=== PATIENT | male | born 1945 | race Caucasian/White ===

== ENCOUNTER 2021-03-22 17:40 | Emergency (ER) | payer OTHER, MEDICARE ==
[2021-03-22 20:39] LABS: Absolute Lymphocytes (CBC) 3.4 K/uL (0.7-4.9); Basophils % 1.1 % (0-1.3); Hematocrit 44.7 % (39.6-49.0); Lymphocytes % 24.8 % (15.3-44.8); RBC Red Blood Cell Count 5.08 M/uL (4.33-5.43)
[2021-03-22 20:43] LABS: Protime INR 1.06
--- NOTE | 2021-03-22 20:55 | RAD REPORT ---
EXAM DESCRIPTION: Calli Single View03/22/2021 8:47 pm CLINICAL HISTORY: Congestion COMPARISON: none FINDINGS: The lungs appear clear of acute infiltrate. The heart is mildly enlarged IMPRESSION: No acute abnormalities displayed
[2021-03-22 20:56] LABS: ALT/SGPT 43 U/L (12-78); AST/SGOT 17 U/L (15-37); Albumin 3.7 g/dL (3.4-5.0); Alkaline Phosphatase 79 U/L (45-117); BUN Blood Urea Nitrogen 19 mg/dL (7-18); Bicarbonate 23 mmol/L (21-32); Bilirubin Direct 0.2 mg/dL (0-0.2); Bilirubin Total 0.6 mg/dL (0.2-1.0); Glucose Level 92 mg/dL (74-106); Magnesium 2.5 mg/dL (1.8-2.4); NT PRO-BNP 262 pg/mL (<125); Potassium 3.8 mmol/L (3.5-5.1); Protein, Total 8.3 g/dL (6.4-8.2); Sodium Level 139 mmol/L (136-145); Troponin (Emerg Dept Use Only) < 0.02 ng/mL (0.0-0.045)
--- NOTE | 2021-03-22 21:06 | RAD REPORT ---
EXAM DESCRIPTION: CT - Head Brain Wo Cont - 03/22/2021 8:36 pm CLINICAL HISTORY: Visual disturbance COMPARISON: None TECHNIQUE: Computed axial tomography of the head was obtained. IV contrast was not requested. All CT scans are performed using dose optimization technique as appropriate and may include automated exposure control or mA/KV adjustment according to patient size. FINDINGS: An intracranial bleed is not seen . Mild dilatation of fourth, third and lateral ventricles. 18 millimeter soft tissue structure left lat eral ventricle No extra-axial fluid collection is noted. Mild to moderate low-density areas within periventricular, deep and subcortical white matter likely r epresent ischemic changes secondary to small vessel disease. Fluid within the sinuses/ mastoids is not seen. IMPRESSION: 18 millimeter soft tissue structure appears to be present within the left lateral ventri vasquez. 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 CT scan with IV contrast is recommended Mild hydrocephalus
--- NOTE | 2021-03-22 23:49 | EDPHYS ---
Physician Documentation [facility] Name: Yfn Barnett Age: 75 yrs Sex: Male : 1945 Arrival Date: 03/22/2021 Time: 17:41 Bed 15 Private MD: ED Physician Pipo Alford HPI: 03/22 20:07 This 75 yrs old Male presents to ER via Ambulatory with complaints of Vision mh7 Problem - doubled. 20:08 The patient is experiencing double vision, The patient sustained None. to both eyes, mh7 caused by an unknown mechanism. Onset: The symptoms/episode began/occurred 2 day(s) ago. Duration: the symptoms are continuous. Aggravated by nothing. Alleviated by nothing. Associated signs and symptoms: Pertinent positives: chills, headache, intermittent for a week, Pertinent negatives: dizziness, ear ache, runny nose. Patient does not utilize any form of vision correction. Severity of symptoms: At their worst the symptoms were mild yesterday, in the emergency department the symptoms have improved moderately. The patient has been recently seen by a physician: the patient's primary care provider, earlier today, Saw eye doctor and had normal eye exam today. Historical: - Allergies: 17:55 No Known Allergies; ll1 - PMHx: 17:55 Hypertension; Gout; ll1 - PSHx: 17:55 None; ll1 - Immunization history:: Flu vaccine is up to date. - Social history:: Smoking status: Patient denies any tobacco usage or history of. ROS: 20:08 ENT: Negative for injury, pain, and discharge, Neck: Negative for injury, pain, and mh7 swelling, Cardiovascular: Negative for chest pain, palpitations, and edema, Respiratory: Negative for shortness of breath, cough, wheezing, and pleuritic chest pain, Abdomen/GI: Negative for abdominal pain, nausea, vomiting, diarrhea, and constipation, Back: Negative for injury and pain, : Negative for injury, bleeding, discharge, and swelling, MS/Extremity: Negative for injury and deformity, Skin: Negative for injury, rash, and discoloration, Psych: Negative for depression, anxiety, suicide ideation, homicidal ideation, and hallucinations, Allergy/Immunology: Negative for hives, rash, and allergies, Endocrine: Negative for neck swelling, polydipsia, polyuria, polyphagia, and marked weight changes, Hematologic/Lymphatic: Negative for swollen nodes, abnormal bleeding, and unusual bruising. Exam: 20:08 Constitutional: This is a well developed, well nourished patient who is awake, alert, mh7 and in no acute distress. Head/Face: Normocephalic, atraumatic. ENT: Nares patent. No nasal discharge, no septal abnormalities noted. Tympanic membranes are normal and external auditory canals are clear. Oropharynx with no redness, swelling, or masses, exudates, or evidence of obstruction, uvula midline. Mucous membranes moist. Neck: Trachea midline, no thyromegaly or masses palpated, and no cervical lymphadenopathy. Supple, full range of motion without nuchal rigidity, or vertebral point tenderness. No Meningismus. Chest/axilla: Normal chest wall appearance and motion. Nontender with no deformity. No lesions are appreciated. Cardiovascular: Regular rate and rhythm with a normal S1 and S2. No gallops, murmurs, or rubs. Normal PMI, no JVD. No pulse deficits. Respiratory: Lungs have equal breath sounds bilaterally, clear to auscultation and percussion. No rales, rhonchi or wheezes noted. No increased work of breathing, no retractions or nasal flaring. Abdomen/GI: Soft, non-tender, with normal bowel sounds. No distension or tympany. No guarding or rebound. No evidence of tenderness throughout. Back: No spinal tenderness. No costovertebral tenderness. Full range of motion. Skin: Warm, dry with normal turgor. Normal color with no rashes, no lesions, and no evidence of cellulitis. MS/ Extremity: Pulses equal, no cyanosis. Neurovascular intact. Full, normal range of motion. Neuro: Awake and alert, GCS 15, oriented to person, place, time, and situation. Cranial nerves II-XII grossly intact. Motor strength 5/5 in all extremities. Sensory grossly intact. Cerebellar exam normal. Normal gait. Psych: Awake, alert, with orientation to person, place and time. Behavior, mood, and affect are within normal limits. 20:08 Eyes: Periorbital structures: appear normal, Pupils: equal, round, and reactive to mh7 light and accomodation, Extraocular movements: intact throughout, Conjunctiva: normal, Corneas: are normal, Sclera: no appreciated abnormality, Lids and lashes: appear normal, funduscopic exam reveals no obvious abnormalities, Visual daniels: are intact, Nystagmus: is not appreciated. Vital Signs: 17:52 BP 200 / 74; Pulse 77; Resp 17; Temp 98.9; Pulse Ox 96% ; Weight 102.51 kg; Height 5 ll1 ft. 9 in. (175.26 cm); Pain 2/10; 17:56 BP 185 / 70; ll1 20:30 BP 173 / 72; Pulse 75; Resp 16 S; Pulse Ox 99% on R/A; Pain 0/10; ad5 21:27 BP 144 / 87; Pulse 86; Resp 18; Pulse Ox 98% ; ea 22:00 BP 161 / 69; Pulse 80; Resp 18; Pulse Ox 99% ; ea 23:54 BP 166 / 71; Pulse 78; Resp 18; Temp 98.7; Pulse Ox 99% ; ea 17:52 Body Mass Index 33.37 (102.51 kg, 175.26 cm) ll1 MDM: 20:08 Differential diagnosis: Ultraviolet keratitis in both eyes. Migraine, intracranial mh7 mass. Data reviewed: vital signs, nurses notes, lab test result(s), cardiac enzymes, CBC, electrolytes, EKG, radiologic studies, CT scan. Data interpreted: Pulse oximetry: on room air is 99 %. Interpretation: normal. Counseling: I had a detailed discussion with the patient and/or guardian regarding: the historical points, exam findings, and any diagnostic results supporting the discharge/admit diagnosis, the presence of at least one elevated blood pressure reading (>120/80) during this emergency department visit, lab results, radiology results, the need for outpatient follow up, an opthalmologist, a neurologist, to return to the emergency department if symptoms worsen or persist or if there are any questions or concerns that arise at home. Response to treatment: the patient's symptoms have markedly improved after treatment. Physician consultation: Dae Caldwell MD was contacted at 21:10, regarding patient's condition, recommended contrast CT Head. 23:48 Patient medically screened. [facility] 03/22 19:58 Order name: Basic Metabolic Panel; Complete Time: 21:24 [facility] 03/22 19:58 Order name: CBC with Diff; Complete Time: 20:49 [facility] 03/22 19:58 Order name: LFT's; Complete Time: 21:24 03/22 19:58 Order name: Magnesium; Complete Time: 21:24 03/22 19:58 Order name: NT PRO-BNP; Complete Time: 21:24 03/22 19:58 Order name: PT-INR; Complete Time: 20:49 03/22 19:58 Order name: Troponin (emerg Dept Use Only); Complete Time: 21:24 03/22 19:58 Order name: XRAY Chest (1 view); Complete Time: 21:24 03/22 19:58 Order name: EKG; Complete Time: 19:59 03/22 19:58 Order name: Cardiac monitoring; Complete Time: 20:40 03/22 19:58 Order name: EKG - Nurse/Tech; Complete Time: 20:53 03/22 19:59 Order name: CT Head Brain wo Cont; Complete Time: 21:24 03/22 21:34 Order name: CT Head Brain w Cont [facility] 03/22 19:58 Order name: IV Saline Lock; Complete Time: 20:36 03/22 19:58 Order name: Labs collected and sent; Complete Time: 20:36 03/22 19:58 Order name: O2 Per Protocol; Complete Time: 20:53 03/22 19:58 Order name: O2 Sat Monitoring; Complete Time: 20:36 03/22 23:41 Order name: Visual Acuity [facility] Administered Medications: 22:59 Drug: NS 0.9% 1000 ml Route: IV; Rate: 1000 ml; Site: right antecubital; ea 23:33 Follow up: Response: No adverse reaction; IV Status: Completed infusion; IV Intake: ea 1000ml Disposition: 03/22/21 23:48 Discharged to Home. Impression: Headache, Diplopia. - Condition is Stable. - Discharge Instructions: Diplopia, General Headache Without Cause. - Medication Reconciliation Form, Thank You Letter, Antibiotic Education, Prescription Opioid Use form. - Follow up: Private Physician; When: 1 - 2 days; Reason: Worsening of condition, Recheck today's complaints, Continuance of care, Re-evaluation by your physician. Follow up: Dae Caldwell MD; When: 1 - 2 days; Reason: Worsening of condition, Recheck today's complaints, Continuance of care, Re-evaluation by your physician. Follow up: Fay Roberts MD; When: 1 - 2 days; Reason: Worsening of condition, Recheck today's complaints. - Problem is an ongoing problem. - Symptoms have improved. Signatures: Dispatcher [employer] EDMS Randee Walters RN RN ea Lewis, Lynsay, RN RN ll1 Pipo Alford MD MD mh7 Corrections: (The following items were deleted from the chart) 03/23 00:01 03/22 23:48 03/22/2021 23:48 Discharged to Home. Impression: Headache; Diplopia. ea Condition is Stable. Forms are Medication Reconciliation Form, Thank You Letter, Antibiotic Education, Prescription Opioid Use. Follow up: Private Physician; When: 1 - 2 days; Reason: Worsening of condition, Recheck today's complaints, Continuance of care, Re-evaluation by your physician. Follow up: Dae Caldwell; When: 1 - 2 days; Reason: Worsening of condition, Recheck today's complaints, Continuance of care, Re-evaluation by your physician. Follow up: Fay Roberts; When: 1 - 2 days; Reason: Worsening of condition, Recheck today's complaints. Problem is an ongoing problem. Symptoms have improved. mh7
--- NOTE | 2021-03-22 23:49 | ER ---
Nurse's Notes [facility] Name: Yfn Barnett Age: 75 yrs Sex: Male : 1945 Arrival Date: 03/22/2021 Time: 17:41 Bed 15 Private MD: Diagnosis: Headache;Diplopia Presentation: 03/22 17:52 Chief complaint: Patient states: Vision doubled since Thursday evening. States he had ll1 BASHIR and sinus pressure earlier in the week. + low grade fever for 2 days. Sent by [facility] for eval. Coronavirus screen: Client denies travel out of the [place] in the last 14 days. At this time, the client does not indicate any symptoms associated with coronavirus-19. Ebola Screen: Patient denies travel to an Ebola-affected area in the 21 days before illness onset. Initial Sepsis Screen: Does the patient meet any 2 criteria? No. Patient's initial sepsis screen is negative. Does the patient have a suspected source of infection? No. Patient's initial sepsis screen is negative. Risk Assessment: Do you want to hurt yourself or someone else? Patient reports no desire to harm self or others. Onset of symptoms was March 20, 2021. 17:52 Method Of Arrival: Ambulatory ll1 17:52 Acuity: AZAEL 2 ll1 Historical: - Allergies: 17:55 No Known Allergies; ll1 - PMHx: 17:55 Hypertension; Gout; ll1 - PSHx: 17:55 None; ll1 - Immunization history:: Flu vaccine is up to date. - Social history:: Smoking status: Patient denies any tobacco usage or history of. Screenin:04 Abuse screen: Denies threats or abuse. Nutritional screening: No deficits noted. ea Tuberculosis screening: No symptoms or risk factors identified. Fall Risk IV access (20 points). Assessment: 20:37 General: Appears in no apparent distress. comfortable, Behavior is calm, cooperative, ad5 appropriate for age. Pain: Denies pain. Neuro: Level of Consciousness is awake, alert, obeys commands, Oriented to person, place, time, situation, Appropriate for age Endoscopy Tech are equal bilaterally Moves all extremities. Gait is steady, Speech is normal, Facial symmetry appears normal, Pupils are PERRLA, Intact Reports blurred vision since x 3 days. Cardiovascular: No deficits noted. Denies chest pain, lightheadedness, palpitations, shortness of breath, syncope, Heart tones present Capillary refill < 3 seconds Clubbing of nail beds is absent JVD is absent Patient's skin is warm and dry. Pulses are all present. Rhythm is regular. Respiratory: No deficits noted. Airway is patent Trachea midline Respiratory effort is even, unlabored, Respiratory pattern is regular, symmetrical, Breath sounds are clear bilaterally. GI: No deficits noted. : No deficits noted. EENT: No deficits noted. Reports blurred vision. Derm: No deficits noted. Skin is pink, warm \T\ dry. Musculoskeletal: No deficits noted. 21:04 Reassessment: Patient and/or family updated on plan of care and expected duration. Pain ea level reassessed. Patient is alert, oriented x 3, equal unlabored respirations, skin warm/dry/pink. 22:00 Reassessment: Patient and/or family updated on plan of care and expected duration. Pain ea level reassessed. Patient is alert, oriented x 3, equal unlabored respirations, skin warm/dry/pink. 23:59 Reassessment: Patient and/or family updated on plan of care and expected duration. Pain ea level reassessed. Patient is alert, oriented x 3, equal unlabored respirations, skin warm/dry/pink. Discharge instruction given to patient verbalized the understanding of instruction. Pt left ED ambulatory tolerating well. Vital Signs: 17:52 BP 200 / 74; Pulse 77; Resp 17; Temp 98.9; Pulse Ox 96% ; Weight 102.51 kg; Height 5 ll1 ft. 9 in. (175.26 cm); Pain 2/10; 17:56 BP 185 / 70; ll1 20:30 BP 173 / 72; Pulse 75; Resp 16 S; Pulse Ox 99% on R/A; Pain 0/10; ad5 21:27 BP 144 / 87; Pulse 86; Resp 18; Pulse Ox 98% ; ea 22:00 BP 161 / 69; Pulse 80; Resp 18; Pulse Ox 99% ; ea 23:54 BP 166 / 71; Pulse 78; Resp 18; Temp 98.7; Pulse Ox 99% ; ea 17:52 Body Mass Index 33.37 (102.51 kg, 175.26 cm) ll1 ED Course: 17:41 Patient arrived in ED. as 17:55 Triage completed. ll1 17:55 Arm band placed on. ll1 19:31 Randee Walters, RN is Primary Nurse. ea 19:38 Pipo Alford MD is Attending Physician. mh7 20:36 CT Head Brain wo Cont In Process Unspecified. EDMS 20:36 CT Head Brain wo Cont Sent. ad5 20:39 Patient has correct armband on for positive identification. Placed in gown. Bed in low ad5 position. Call light in reach. Side rails up X2. playground monitor on. Pulse ox on. NIBP on. Door closed. Noise minimized. Warm blanket given. 20:39 No provider procedures requiring assistance completed. Initial lab(s) drawn, by ia, ad5 sent to lab. Inserted saline lock: 20 gauge in right upper arm, using aseptic technique. Blood collected. 20:47 XRAY Chest (1 view) In Process Unspecified. EDMS 22:33 CT Head Brain w Cont In Process Unspecified. EDMS 23:48 Dae Caldwell MD is Referral Physician. [facility] 23:48 Fay Roberts MD is Referral Physician. [facility] 03/23 00:00 IV discontinued, intact, bleeding controlled, No redness/swelling at site. Pressure ea dressing applied. Administered Medications: 03/22 22:59 Drug: NS 0.9% 1000 ml Route: IV; Rate: 1000 ml; Site: right antecubital; ea 23:33 Follow up: Response: No adverse reaction; IV Status: Completed infusion; IV Intake: ea 1000ml Intake: 23:33 IV: 1000ml; Total: 1000ml. ea Outcome: 23:48 Discharge ordered by . [facility] 23:59 Discharged to home ambulatory, with family. ea 23:59 Condition: stable 23:59 Discharge instructions given to patient, Instructed on discharge instructions, follow up and referral plans. Demonstrated understanding of instructions, follow-up care. 03/23 00:01 Patient left the ED. ea Signatures: Dispatcher [employer] EDDC yAsha Desai Elena, RN RN Marisol Harmon RN RN 1 Pipo Alford MD MD [facility] Anand Kamara ad5
[2021-03-23 00:14] VITALS: O2SAT 99
[2021-03-23 00:15] VITALS: BP 166/71; TEMP 98.7
--- NOTE | 2021-03-23 07:47 | EKG ---
Test Date: 2021-03-22 Test Time: 20:50:17 Ramp Supervisor: PHANI MEASUREMENT RESULTS: Intervals: Rate: 73 NH: 160 QRSD: 96 QT: 390 QTc: 429 [place]: P: 35 NH: 160 QRS: 26 T: 46 INTERPRETIVE STATEMENTS: Normal sinus rhythm Normal ECG No previous ECG available for comparison Electronically Signed On 03-23-21 07:46:09 CDT by Sergey Zafar
--- NOTE | 2021-03-23 20:33 | RAD REPORT ---
EXAM DESCRIPTION: CT - Head Brain W Cont - 03/23/2021 6:33 am CLINICAL HISTORY: 75 years Male Headache; visual disturbances COMPARISON: CT head without contrast of the same day TECHNIQUE: Contiguous axial images of the brain were obtained with the administration of intravenous contrast.This exam was performed according to our departmental dose-optimization program which inclu justin use of Automated Exposure Control, adjustment of the mA and/or kV according to patient size and/o r use of iterative reconstruction technique. DLP: 843 mGy*cm FINDINGS: Brain: No acute intracranial hemorrhage. No extra-axial collection. No mass effect or hilario iation. No abnormal intracranial enhancement. Mild prominence of the sulci and cisterns. Confluent periventricular and subcortical white matter hypodensity is noted. Ventricles: Prominence of ventricular system without hydrocephalus. Globes and orbits: No acute abnormality. Bones: No acute osseous finding Paranasal sinuses: Paranasal sinuses are clear. Mastoid air cells: Well pneumatized. Soft tissues: Within normal limits IMPRESSION: No acute intracranial abnormality or abnormal intracranial enhancement. Cerebral volume loss and chronic vessel ischemic changes. Consider follow-up MRI brain with and witho ut contrast. Electronically signed by: Rickey Avalos DO 03/22/2021 11:05 PM CDT Due to temporary technical issues with the PACS/Fluency reporting system, reports are being signed by the in house radiologists without review as a courtesy to insure prompt reporting. The interpreting radiologist is fully responsible for the content of the report.
== END 2021-03-23 00:01 | disposition home or self-care (01) ==
LOC: ER 17:40
DX: H53.2 Diplopia (principal); R51.9 Headache, unspecified; I10 Essential (primary) hypertension; M10.9 Gout, unspecified
CPT/HCPCS: 93005; 85025; 80048; 36415; 83735; 85610; 80076; 84484; 83880; 70460; 70450; 71045; 96360; 99284; Q9967

== ENCOUNTER 2023-08-07 11:35 | Day surgery (SDC) | payer OTHER, MEDICARE ==
--- NOTE | 2023-08-06 14:27 | RAD REPORT ---
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 TECHNIQUE: PA and lateral views of the chest were obtained. FINDINGS: The lungs are hyperexpanded compatible with COPD. The heart is upper limit of normal in si ze. No fracture or aggressive bony process. IMPRESSION: COPD without acute process identified. The USPSTF recommends annual screening for lung cancer with low-dose CT (LDCT) in adults aged 50 to 8 0 years who have a 20 pack-year smoking history and currently smoke or have quit within the past 15 y ears.
[2023-08-06 14:28] LABS: Absolute Lymphocytes (CBC) 3.3 K/uL (0.7-4.9); Hematocrit 44.8 % (39.6-49.0); Lymphocytes % 33.1 % (15.3-44.8); MCV 88.6 fL (80-100); MPV 10.2 fL (7.6-11.3); Platelets 242 thou/uL (152-406); RBC Red Blood Cell Count 5.06 M/uL (4.33-5.43)
[2023-08-06 14:32] LABS: Protime INR 1.1
[2023-08-06 14:44] LABS: Potassium 3.9 mEq/L (3.5-5.1); Uric Acid 6.6 mg/dL (3.5-7.2)
[2023-08-07] MEDS ORDERED: NA CHLORIDE 0.9% 500 ML ONE (12:23)
[2023-08-07] MEDS ORDERED: LIDOCAINE 1% 20 ML MDV ONE (13:53)
[2023-08-07] MEDS ORDERED: HEPA 1000U/500MLS 2,000 UNIT/1,000 ML BAG IV ONE (13:53)
--- NOTE | 2023-08-07 13:53 | EKG ---
Test Date: 2023-08-06 Test Time: 14:03:12 Oven Drier Tender: SYED MEASUREMENT RESULTS: Intervals: Rate: 63 ME: 160 QRSD: 100 QT: 418 QTc: 427 [place]: P: 45 ME: 160 QRS: 46 T: 48 INTERPRETIVE STATEMENTS: Normal sinus rhythm Normal ECG Compared to ECG 03/22/2021 20:50:17 No significant changes Electronically Signed On 08-07-23 13:50:52 CDT by Ervin Lopez
[2023-08-07] MEDS ORDERED: HEPARIN 5000 UNIT/ML 1 ML VIAL ONE ×2 (14:03→14:44)
[2023-08-07] MEDS ORDERED: MIDAZOLAM HCL 2 MG/2 ML INJ ONE (14:03)
[2023-08-07] MEDS ORDERED: FENTANYL CITR 100 MCG/2 ML ONE (14:03)
[2023-08-07] MEDS ORDERED: CLOPIDOGREL 75 MG TABLET ONE (14:04)
[2023-08-07] MEDS ORDERED: ATROPINE SULF 1 MG/10 ML SYR IV ONE (14:04)
[2023-08-07] MEDS ORDERED: HEPARIN 10,000 UNIT/10 ML VIAL IV ONE (14:04)
[2023-08-07] MEDS ORDERED: VERAPAMIL HCL 10 MG/4 ML VIAL IV ONE (14:04)
[2023-08-07] MEDS ORDERED: ASPIRIN 325 MG TAB ONE (14:04)
[2023-08-07] MEDS ORDERED: TICAGRELOR 90 MG TABLET PO ONE (14:04)
[2023-08-07] MEDS ORDERED: REGADENOSON 0.4 MG/5 ML SYR IV ONE (14:24)
[2023-08-07] MEDS ORDERED: FAMOTIDINE 20 MG TAB ONE (14:30)
[2023-08-07] MEDS ORDERED: HEPA 1000U/500MLS 1,000 UNIT/500 ML BAG IV ONE (14:46)
[2023-08-07 15:25] VITALS: TEMP 97.6
[2023-08-07 16:12] VITALS: O2SAT 96
[2023-08-07 17:03] VITALS: BP 130/65
--- NOTE | 2023-08-07 23:11 | OP ---
Date of Procedure: 08/07/2023 Surgeon: JOEL HAYWOOD Procedures Performed: 1.Selective coronary angiogram. 2.PCI of severe mid LAD stenosis, used 3.0 x 24 mm Synergy drug-eluting stent and I had to use anoth er 3.0 x 12 mm due to edge dissection. Access: Right radial artery 6-Monegasque, closed with TR band. Complications: None. Bleeding: Less than 20 mL. Indications: Severe aortic valve stenosis prior to TAVR. Description Of Procedure: After risks, benefits, and alternatives were explained, patient agreed to procedure and signed informed consent. The patient was brought into the cardiac catheterization labo [facility], prepped and draped in sterile fashion. Then, I accessed right radial artery using pediatric micropuncture kit and placed a 6-Monegasque slender sheath and took 5-Monegasque [place] 4 catheter into the ao rtic root over a J-wire, engaged left main and right coronary artery, took standard views and then ex changed for a 6-Monegasque EBU 3.5 guide, engaged the left main, gave systemic heparin to assure ACT leve l above 250, gave 600 mg of Plavix, and 325 mg aspirin, and then I took a short run-through wire into the LAD, placed it distally, and another run-through wire into the diagonal branch where the stenosi s was and to protect it and then using a 3.0 balloon, the lesion was expanded very well and then I to ok a 3.0 x 24 mm Synergy drug-eluting stent inflated to high pressure and had a very good expansion a nd then there was a dissection at the edge. I had to put another 3.0 x 12 mm drug-eluting stent. Ex cellent results at the end and then I removed the wires and final angiogram was satisfactory with a g uide and sheath, placed TR band with good hemostasis. Findings: 1.Left main was normal. 2.LAD; proximal is normal. Mid 80% long lesion, status post successful besides above and then becom es normal. Diagonal branches with luminal irregularities. 3.Left circumflex; moderate size with mid to distal 30% stenosis. 4.RCA; large and dominant, proximal 60%, mid 50%, and the PDA has 50% to 60%. Conclusion: 1.Severe mid LAD stenosis, status post successful PCI as above. 2.Moderate coronary artery disease elsewhere. Plan: Proceed with TAVR as planned. SR/MODL Voice ID: [id number] Report ID: [id number]
== END 2023-08-07 17:35 | disposition home or self-care (01) ==
LOC: CCL 11:35
PROVIDERS: ATTEND Internal Medicine
DX: I25.10 Atherosclerotic heart disease of native coronary artery without angina pectoris (principal); I35.0 Nonrheumatic aortic (valve) stenosis; I34.0 Nonrheumatic mitral (valve) insufficiency; I51.7 Cardiomegaly; I10 Essential (primary) hypertension; R09.89 Other specified symptoms and signs involving the circulatory and respiratory systems
CPT/HCPCS: 36415; 71046; 76937; 80048; 84550; 85025; 85610; 85730; 93005; 93454; C1725; C1893; C9600; J0461; J1644; J2001; J2250; J2785; J3010; J7040; Q9966